=== PATIENT | female | born 1990 | race Caucasian/White ===

== ENCOUNTER 2018-10-26 14:30 | Emergency (ER) | payer MEDICARE, OTHER ==
[~2018-10-26] VITALS: Ht 157.5 cm; Wt 77.3 kg
[2018-10-26 14:35] VITALS: BP 154/80; PULSE 88; RESP 18; Ht 157.5 cm; Wt 77.3 kg
[2018-10-26] MEDS ORDERED: ACETAMINOPHEN 500 MG TAB PO STA (15:00)
== END 2018-10-26 16:20 | disposition home or self-care (01) ==
LOC: FTE 14:30
DX: M54.2 Cervicalgia (principal); M54.9 Dorsalgia, unspecified
CPT/HCPCS: 81025; 99282